=== PATIENT | male | born 1980 | race Caucasian/White ===

== ENCOUNTER 2019-03-05 10:09 | Day surgery (SDC) | payer OTHER ==
[2019-03-04 10:28] VITALS: BMI 31.5
[~2019-03-05 10:09] MED LIST: LACTATED RINGERS 1,000 ML IV SCH
[2019-03-05 10:21] VITALS: TEMP 96
[2019-03-05] MEDS ORDERED: PROPOFOL 10 MG/ML 20 ML VIAL IV ONE (10:46)
--- NOTE | 2019-03-05 10:59 | P.PCN ---
Date of Procedure: 03/05/19 Procedure(s) Performed: BRIEF HISTORY: Patient is a 38-year-old, pleasant, male, scheduled for an upper endoscopy as a part of evaluation of long-standing history of GERD of several years duration. He is been on omeprazole 20 mg daily for almost 20 years. Lately has been having excessive burping and occasional break through heartburn. He is hence scheduled for an upper endoscopy to rule out complicated reflux disease.. PROCEDURE PERFORMED: Esophagogastroduodenoscopy with biopsy. PREOPERATIVE DIAGNOSIS: Long standing history of GERD. IV sedation per anesthesia. PROCEDURE: After informed consent was obtained, the patient was brought into the endoscopy unit. IV sedation was administered by Anesthesia under continuous monitoring. Initially the Olympus GIF-140 video endoscope was inserted into the mouth. Esophagus intubated without any difficulty. It was gradually advanced into the stomach and duodenum and carefully examined. The bulb and the second part of the duodenum appeared normal. The scope at this time was withdrawn to the stomach, adequately insufflated with air, and upon careful examination, mucosa of the antrum, had mild antral gastritis. Biopsies were done from this area. The body, cardia and the fundus appeared normal. The scope was then withdrawn into the esophagus. The GE junction was located at 39 cm from the incisors. The esophagus appeared normal. There were no erosions or ulcerations seen and the patient tolerated the procedure well. IMPRESSION: 1. Mild antral gastritis. 2. No evidence of esophagitis or Banegas's esophagus. RECOMMENDATIONS: The findings of this examination were discussed with the patient as well as his family. He was advised to continue with Prilosec 20 mg daily but he can have our before dinnertime and follow antireflux measures.
[2019-03-05 11:13] VITALS: RESP 16
[2019-03-05 11:22] VITALS: BP 128/87; PULSE 81
== END 2019-03-05 11:41 | disposition home or self-care (01) ==
LOC: ORWHC2ENDO 10:09
PROVIDERS: ATTEND Internal Medicine Gastroenterology
DX: K29.50 Unspecified chronic gastritis without bleeding (principal); K21.9 Gastro-esophageal reflux disease without esophagitis; G43.909 Migraine, unspecified, not intractable, without status migrainosus; J44.9 Chronic obstructive pulmonary disease, unspecified; F39 Unspecified mood [affective] disorder; Z79.899 Other long term (current) drug therapy
CPT/HCPCS: 43239; J2704; 88305

== ENCOUNTER 2021-05-14 20:18 | Emergency (ER) | payer OTHER ==
[2021-05-14] MEDS ORDERED: KETOROLAC 15 MG/ML 1 ML VIAL IM STA (20:41)
--- NOTE | 2021-05-14 21:13 | XR ---
EXAMINATION TYPE: XR elbow complete RT DATE OF EXAM: 05/14/2021 COMPARISON: NONE HISTORY: Fall. Pain. TECHNIQUE: 3 views FINDINGS: There is 13 mm intra-articular large chip fracture of the lateral aspect of the radial head . There is separation 2 mm. There is no dislocation. Joint spaces are normal. IMPRESSION: Acute intra-articular fracture of the radial head.
--- NOTE | 2021-05-14 21:58 | ED ---
Fall HPI - General Chief Complaint: Fall Stated Complaint: R Elbow Injury Time Seen by Provider: 05/14/21 20:32 Source: patient, RN notes reviewed Mode of arrival: ambulatory - History of Present Illness Initial Comments: Patient is a 41-year-old male that presents to emergency department complaining of right elbow pain after falling while rollerblading. He notes he fell on ou tstretched hand. She denied any significant pain while sitting up in bed during exam and interview. He did note that he had some linear range of motion on full extension. He did note that he had full sensation and feeling in his right hand. She denied any other issues or complaints at this time. - Related Data Home Medications Medication Instructions Recorded Confirmed FLUoxetine HCL [PROzac] 80 mg PO DAILY 03/04/19 03/04/19 LORazepam [Ativan] 1 mg PO DAILY 03/04/19 03/04/19 Metoprolol Succinate (ER) [Toprol 50 mg PO HS 03/04/19 03/05/19 Xl] Montelukast [Singulair] 10 mg PO HS 03/04/19 03/04/19 Omeprazole [PriLOSEC] 20 mg PO AC-BRKFST 03/04/19 03/04/19 Phentermine HCl [Adipex-P] 37.5 mg PO HS 03/04/19 03/04/19 SUMAtriptan SUCCINATE [Imitrex] 100 mg PO DAILY PRN 03/04/19 03/05/19 Topiramate [Topamax] 100 mg PO BID 03/04/19 03/04/19 Allergies Allergy/AdvReac Type Severity Reaction Status Date / Time No Known Allergies Allergy Verified 05/14/21 20:27 Review of Systems ROS Statement: Those systems with pertinent positive or pertinent negative responses have been documented in the HPI. ROS Other: All systems not noted in ROS Statement are negative. Past Medical History Past Medical History: Asthma, GERD/Reflux, Hypertension, Neurologic Disorder Additional Past Medical History / Comment(s): MIGRAINES History of Any Multi-Drug Resistant Organisms: None Reported Past Surgical History: No Surgical Hx Reported Past Anesthesia/Blood Transfusion Reactions: No Reported Reaction Past Psychological History: Anxiety Smoking Status: Never smoker Past Alcohol Use History: Occasional Past Drug Use History: None Reported - Past Family History Mother Family Medical History: No Reported History General Exam Limitations: no limitations General appearance: alert, in no apparent distress Head exam: Present: atraumatic, normocephalic, normal inspection Eye exam: Present: normal appearance, PERRL, EOMI. Absent: scleral icterus, conjunctival injection, periorbital swelling Neck exam: Present: normal inspection Respiratory exam: Present: normal lung sounds bilaterally. Absent: respiratory distress, wheezes, rales, rhonchi, stridor Cardiovascular Exam: Present: regular rate, normal rhythm, normal heart sounds. Absent: systolic murmur, diastolic murmur, rubs, gallop, clicks Extremities exam: Present: normal inspection, full ROM, normal capillary refill. Absent: tenderness, pedal edema, joint swelling, calf tenderness Right Elbow exam: Present: normal inspection. Absent: full ROM (Extension limited secondary to pain.), tenderness, swelling, abrasion Neurological exam: Present: alert, oriented X3 Psychiatric exam: Present: normal affect, normal mood Skin exam: Present: warm, dry, intact, normal color. Absent: rash Course Vital Signs 05/14/21 20:27 Temperature 98.7 F Pulse Rate 16 L Respiratory 16 Rate Blood Pressure 136/79 O2 Sat by Pulse 100 Oximetry Procedures - Orthopedic Splinting/Casting Injury #1 Side: right Upper Extremity Injury Location: elbow Upper Extremity Immobilizer: posterior splint, Trever wrap, synthetic pre-padded splint Medical Decision Making - Medical Decision Making 41-year-old male complaining of right elbow pain after falling while rollerblading. X-ray the right elbow ordered. 15 mg of Toradol ordered for pain. X-ray shows a intra-articular fracture of the radial head. Patient was splinted with a posterior splint put in an arm sling. Case discussed with Dr. Dunn, patient can discharge home with follow-up to primary care and orthopedics. - Radiology Data Radiology results: report reviewed, image reviewed Elbow x-ray: Acute intra-articular fracture of the radial head. Disposition Clinical Impression: Right radial head fracture Disposition: HOME SELF-CARE Condition: Stable Instructions (If sedation given, give patient instructions): Fall Prevention (ED) Additional Instructions: Please return to the Emergency Department if symptoms worsen or any other concerns. Follow-up with primary care in the next 2 days. Follow-up with orthopedics in the next 1-2 days. Take Tylenol and Motrin as needed for pain control. Is patient prescribed a controlled substance at d/c from ED?: No Referrals: Willian Donahue MD [Primary Care Provider] - 1-2 days Alexandro Rahman DO [Doctor of Osteopathic Medicine] - 1-2 days Time of Disposition: 21:57
[2021-05-14 22:03] VITALS: BP 134/82; PULSE 78; RESP 20; TEMP 97.7
== END 2021-05-14 22:03 | disposition home or self-care (01) ==
LOC: EC 20:18
DX: S52.121A Displaced fracture of head of right radius, initial encounter for closed fracture (principal); I10 Essential (primary) hypertension; J45.909 Unspecified asthma, uncomplicated; K21.9 Gastro-esophageal reflux disease without esophagitis; F41.9 Anxiety disorder, unspecified; Z79.899 Other long term (current) drug therapy; V00.121A Fall from non-in-line roller-skates, initial encounter; Y93.51 Activity, roller skating (inline) and skateboarding
CPT/HCPCS: 73080; 29125; 96372; 99283; J1885

== ENCOUNTER → 2022-03-07 | Outpatient (CLI) | payer OTHER ==
--- NOTE | 2022-03-07 08:51 | MR ---
EXAMINATION TYPE: MR brain wo/w con DATE OF EXAM: 03/07/2022 COMPARISON: NONE HISTORY: Headaches TECHNIQUE: Multiplanar, multisequence images of the brain and brainstem is performed without and with IV contras t, utilizing 9 mL intravenous Gadavist . FINDINGS: Diffusion weighted images demonstrate no evidence of a recent infarct or other diffusion ab normality. There is no extra-axial fluid collection or significant white matter signal abnormality. The ventricular system and cisternal spaces are normal in size and appearance. The brain volume is age appropriate. Midline structures demonstrate normal morphology. The craniocervical junction appears within normal limits. Post contrast images demonstrate no abnormal enhancement. The dural venous sinuses appear pa tent. The visualized sinuses are clear and the globes are intact. IMPRESSION: Unremarkable study.
== END | disposition home or self-care (01) ==
LOC: RADMRIMAIN 07:24
PROVIDERS: ATTEND Pediatrics
DX: R51.9 Headache, unspecified (principal)
CPT/HCPCS: 70553; A9585

== ENCOUNTER → 2023-07-25 | Outpatient (CLI) | payer OTHER ==
--- NOTE | 2023-08-01 10:48 | MR ---
EXAMINATION TYPE: MR elbow LT wo con DATE OF EXAM: 07/25/2023 COMPARISON: NONE HISTORY: 43-year-old male M66.322 spontaneous rupture, Left elbow pain with limited mobility, TECHNIQUE: Multiplanar, multisequence images of the left elbow were obtained without IV contrast. FINDINGS: There is a small 4 mm tear along the superficial insertion of the common flexor tendon origin. Underl pradeep ACL is intact. The common extensor tendon origin and underlying RCL appears intact. The radiocapitellar and ulnar trochlear joints are intact. Physiologic joint fluid. Triceps insertion is intact. There is distal biceps tendon rupture. The retracted tendon. It is located at the level of the elbow joint line, retracted by possibly 4.2 cm. There is prominent hemorrhage and fluid along the interveni ng gap and also extending along the medial aspect of the upper forearm in the expected region of the lacertus fibrosis. Reactive edema tracks along the biceps myotendinous junction and lower muscle belly. No acute or healing fracture is seen. IMPRESSION: 1. Distal biceps tendon rupture. Associated hemorrhage and edema within the intervening gap. Balled u p stump retracted by 4.2 cm to the level of the elbow joint line. 2. There is also edema extending along the anteromedial upper forearm suggesting accompanying tear of the lacertus fibrosis. 3. Tiny tear along the superficial insertion of the common flexor tendon origin.
== END | disposition home or self-care (01) ==
LOC: RADMRIMAIN 20:45
PROVIDERS: ATTEND Orthopaedic Surgery Sports Medicine
DX: M66.322 Spontaneous rupture of flexor tendons, left upper arm (principal); M25.522 Pain in left elbow; R60.0 Localized edema

== ENCOUNTER 2023-08-14 19:05 | Emergency (ER) | payer OTHER ==
[2023-08-14 20:35] LABS: Basophils % (A) 0 %; Eosinophils # (A) 0.1 k/uL (0-0.7); Eosinophils % (A) 1 %; HCT 51.4 % (39.0-53.0); HGB 17.4 gm/dL (13.0-17.5); Lymphocytes # (A) 2.1 k/uL (1.0-4.8); Lymphocytes % (A) 23 %; MCH 29.5 pg (25.0-35.0); MCHC 33.8 g/dL (31.0-37.0); MCV 87.4 fL (80.0-100.0); Mean Platelet Volume 7.8; Monocytes # (A) 0.4 k/uL (0-1.0); Monocytes % (A) 4 %; Neutrophils # (A) 6.4 k/uL (1.3-7.7); Neutrophils % (A) 70 %; Platelet Count 236 k/uL (150-450); RBC 5.88 m/uL (4.30-5.90); RDW 12.5 % (11.5-15.5); WBC 9.2 k/uL (3.8-10.6)
[2023-08-14 20:51] LABS: Partial Thromboplastin Time 23.8 sec (22.0-30.0); Prothrombin Time 10.7 sec (10.0-12.5)
--- NOTE | 2023-08-14 21:10 | XR ---
EXAMINATION: XR chest 2V: 08/14/2023 8:35 PM CLINICAL INDICATION: dysrhythmia TECHNIQUE: Departmental protocol COMPARISON: None FINDINGS: The lungs are clear. The pleural spaces are negative. The cardiac silhouette is not enlarged. The remainder of the mediastinal silhouette is unremarkable. The skeletal structures and soft tissues are negative for acute findings. IMPRESSION: No acute radiographic process.
[2023-08-14 21:47] LABS: ALT 36 U/L (4-49); AST 32 U/L (17-59); African American GFR (CKD) >90 (>60 ml/min/1.73 sqM); Albumin 4.8 g/dL (3.5-5.0); Alkaline Phosphatase 48 U/L (38-126); Anion Gap 11 mmol/L; Blood Urea Nitrogen 8 mg/dL (9-20); Calcium 9.6 mg/dL (8.4-10.2); Carbon Dioxide 25 mmol/L (22-30); Chloride 104 mmol/L (98-107); Glucose 105 mg/dL (74-99); Magnesium 1.7 mg/dL (1.6-2.3); Non-African American GFR(CKD) >90 (>60 ml/min/1.73 sqM); Sodium 140 mmol/L (137-145); Total Bilirubin 0.8 mg/dL (0.2-1.3); Total Protein 7.5 g/dL (6.3-8.2)
--- NOTE | 2023-08-14 23:08 | ED ---
Arrhythmia/Palpitations HPI - General Chief Complaint: Arrhythmia/Palpitations Stated Complaint: palpitations Time Seen by Provider: 08/14/23 19:45 Source: patient Mode of arrival: ambulatory Limitations: no limitations - History of Present Illness Initial Comments: 43-year-old male presents emergency room reporting palpitations. States that for the past 3 weeks he will have intermittent palpitations that last for approximately one hour. Symptoms are currently present at this time. He has no associated chest pain or shortness of breath. No nausea or vomiting. He has no previous cardiac history. Denies that his symptoms are present with exertion. No significant family history of cardiac disease. He denies any calf pain or swelling. No fevers chills or cough. No other alleviating, precipitating or modifying factors - Related Data Home Medications Medication Instructions Recorded Confirmed FLUoxetine HCL [PROzac] 80 mg PO DAILY 03/04/19 08/14/23 Omeprazole [PriLOSEC] 20 mg PO AC-BRKFST 03/04/19 08/14/23 Topiramate [Topamax] 100 mg PO BID 03/04/19 08/14/23 LORazepam [Ativan] 0.5 mg PO DAILY PRN 07/04/23 08/14/23 Rosuvastatin Calcium 5 mg PO HS 07/04/23 08/14/23 Allergies Allergy/AdvReac Type Severity Reaction Status Date / Time No Known Allergies Allergy Verified 08/14/23 22:47 Review of Systems ROS Statement: Those systems with pertinent positive or pertinent negative responses have been documented in the HPI. ROS Other: All systems not noted in ROS Statement are negative. Past Medical History Past Medical History: Asthma, GERD/Reflux, Hypertension Additional Past Medical History / Comment(s): MIGRAINES History of Any Multi-Drug Resistant Organisms: None Reported Past Surgical History: No Surgical Hx Reported Past Anesthesia/Blood Transfusion Reactions: No Reported Reaction Past Psychological History: Anxiety Smoking Status: Never smoker Past Alcohol Use History: Occasional Past Drug Use History: None Reported - Past Family History Mother Family Medical History: No Reported History General Exam Limitations: no limitations Course Vital Signs 08/14/23 08/14/23 08/14/23 19:44 21:00 23:20 Temperature 97.8 F 98.5 F Pulse Rate 97 88 88 Respiratory 20 18 18 Rate Blood Pressure 163/96 134/89 134/89 O2 Sat by Pulse 99 98 97 Oximetry Medical Decision Making - Medical Decision Making Was pt. sent in by a medical professional or institution ([facility] Giles, NATIONAL SALES EXECUTIVE, urgent care, hospital, or detention...) When possible be specific @ -No Did you speak to anyone other than the patient for history (EMS, parent, family, police, friend...)? What history was obtained from this source @ -No Did you review nursing and triage notes (agree or disagree)? Why? @ -I reviewed and agree with nursing and triage notes Were old charts reviewed (outside hosp., previous admission, EMS record, old EKG, old radiological studies, urgent care reports/EKG's, detention records)? Report findings @ -No old charts were reviewed Differential Diagnosis (chest pain, altered mental status, abdominal pain women, abdominal pain men, vaginal bleeding, weakness, fever, dyspnea, syncope, headache, dizziness, GI bleed, back pain, seizure, CVA, palpatations, mental health, musculoskeletal)? @ -Differential Palpitations Ventricular arrhythmias, atrial arrhythmias, myocardial infarction, anemia, thyrotoxicosis, electrolyte imbalance, hypokalemia, pulmonary embolism, pulmonary disease, drugs, alcohol, anxiety, stress.... This is not meant to be an all-inclusive list. EKG interpreted by me (3pts min.). @ -yes and demonstrates sinus rhythm rate of 82. AR interval 163. QRS 98. QTC 385. No acute ST segment elevation or depression X-rays interpreted by me (1pt min.). @ -Yes and demonstrates no acute process CT interpreted by me (1pt min.). @ -None done U/S interpreted by me (1pt. min.). @ -None done What testing was considered but not performed or refused? (CT, X-rays, U/S, labs)? Why? @ -None What meds were considered but not given or refused? Why? @ -None Did you discuss the management of the patient with other professionals (professionals i.e. [employer] Giles, NATIONAL SALES EXECUTIVE, lab, RT, psych nurse, rn social services, spring coverer, teacher, finance officer, trimming caser)? Give summary @ -No Was smoking cessation discussed for >3mins.? @ -No Was critical care preformed (if so, how long)? @ -No Were there social determinants of health that impacted care today? How? (Homelessness, low income, unemployed, alcoholism, drug addiction, transportation, low edu. Level, literacy, decrease access to med. care, skilled nursing, rehab)? @ -No Was there de-escalation of care discussed even if they declined (Discuss DNR or withdrawal of care, Hospice)? DNR status @ -No What co-morbidities impacted this encounter? (DM, HTN, Smoking, COPD, CAD, Cancer, CVA, ARF, Chemo, Hep., AIDS, mental health diagnosis, sleep apnea, morbid obesity)? @ -None Was patient admitted / discharged? Hospital course, mention meds given and route, prescriptions, significant lab abnormalities, going to OR and other pert inent info. @ -Discharge. Upon arrival patient was placed into room 15. History and physical exam was performed. He is placed on continuous pulse ox and cardiac monitoring. 12-lead EKG is obtained. Laboratory studies are conducted. Patient does have visible PACs. I did discuss results with the patient. At this time to be discharged home. Instructed to follow up with his primary care doctor for echo and Holter monitoring. Return for any new or worsening symptoms. Patient was agreeable plan is discharged in stable condition Undiagnosed new problem with uncertain prognosis? @ -yes Drug Therapy requiring intensive monitoring for toxicity (Heparin, Nitro, Insulin, Cardizem)? @ -No Were any procedures done? @ -No Diagnosis/symptom? @ -Acute palpitations, PACs Acute, or Chronic, or Acute on Chronic? @ -acute Uncomplicated (without systemic symptoms) or Complicated (systemic symptoms)? @ -complicated Side effects of treatment? @ -No Exacerbation, Progression, or Severe Exacerbation? @ -No Poses a threat to life or bodily function? How? (Chest pain, USA, MA, pneumonia, PE, COPD, DKA, ARF, appy, cholecystitis, CVA, Diverticulitis, Homicidal, Suicidal, threat to staff... and all critical care pts) @ -No - Lab Data Result diagrams: 08/14/23 20:15 08/14/23 20:15 Lab Results 08/14/23 08/14/23 08/14/23 Range/Units 20:15 20:15 20:15 WBC 9.2 (3.8-10.6) k/uL RBC 5.88 (4.30-5.90) m/uL Hgb 17.4 (13.0-17.5) gm/dL Hct 51.4 (39.0-53.0) % MCV 87.4 (80.0-100.0) fL MCH 29.5 (25.0-35.0) pg MCHC 33.8 (31.0-37.0) g/dL RDW 12.5 (11.5-15.5) % Plt Count 236 (150-450) k/uL MPV 7.8 Neutrophils % 70 % Lymphocytes % 23 % Monocytes % 4 % Eosinophils % 1 % Basophils % 0 % Neutrophils # 6.4 (1.3-7.7) k/uL Lymphocytes # 2.1 (1.0-4.8) k/uL Monocytes # 0.4 (0-1.0) k/uL Eosinophils # 0.1 (0-0.7) k/uL Basophils # 0.0 (0-0.2) k/uL PT 10.7 (10.0-12.5) sec INR 1.0 (<1.2) APTT 23.8 (22.0-30.0) sec Sodium 140 (137-145) mmol/L Potassium 4.0 (3.5-5.1) mmol/L Chloride 104 (98-107) mmol/L Carbon Dioxide 25 (22-30) mmol/L Anion Gap 11 mmol/L BUN 8 L (9-20) mg/dL Creatinine 0.96 (0.66-1.25) mg/dL Est GFR (CKD-EPI)AfAm >90 (>60 ml/min/1.73 sqM) Est GFR (CKD-EPI)NonAf >90 (>60 ml/min/1.73 sqM) Glucose 105 H (74-99) mg/dL Calcium 9.6 (8.4-10.2) mg/dL Magnesium 1.7 (1.6-2.3) mg/dL Total Bilirubin 0.8 (0.2-1.3) mg/dL AST 32 (17-59) U/L ALT 36 (4-49) U/L Alkaline Phosphatase 48 (38-126) U/L Troponin I (0.000-0.034) ng/mL Total Protein 7.5 (6.3-8.2) g/dL Albumin 4.8 (3.5-5.0) g/dL TSH 1.570 (0.465-4.680) mIU/L 08/14/23 Range/Units 20:15 WBC (3.8-10.6) k/uL RBC (4.30-5.90) m/uL Hgb (13.0-17.5) gm/dL Hct (39.0-53.0) % MCV (80.0-100.0) fL MCH (25.0-35.0) pg MCHC (31.0-37.0) g/dL RDW (11.5-15.5) % Plt Count (150-450) k/uL MPV Neutrophils % % Lymphocytes % % Monocytes % % Eosinophils % % Basophils % % Neutrophils # (1.3-7.7) k/uL Lymphocytes # (1.0-4.8) k/uL Monocytes # (0-1.0) k/uL Eosinophils # (0-0.7) k/uL Basophils # (0-0.2) k/uL PT (10.0-12.5) sec INR (<1.2) APTT (22.0-30.0) sec Sodium (137-145) mmol/L Potassium (3.5-5.1) mmol/L Chloride (98-107) mmol/L Carbon Dioxide (22-30) mmol/L Anion Gap mmol/L BUN (9-20) mg/dL Creatinine (0.66-1.25) mg/dL Est GFR (CKD-EPI)AfAm (>60 ml/min/1.73 sqM) Est GFR (CKD-EPI)NonAf (>60 ml/min/1.73 sqM) Glucose (74-99) mg/dL Calcium (8.4-10.2) mg/dL Magnesium (1.6-2.3) mg/dL Total Bilirubin (0.2-1.3) mg/dL AST (17-59) U/L ALT (4-49) U/L Alkaline Phosphatase (38-126) U/L Troponin I <0.012 (0.000-0.034) ng/mL Total Protein (6.3-8.2) g/dL Albumin (3.5-5.0) g/dL TSH (0.465-4.680) mIU/L Disposition Clinical Impression: Palpitations, PAC (premature atrial contraction) Disposition: HOME SELF-CARE Condition: Stable Instructions (If sedation given, give patient instructions): Heart Palpitations (ED) Additional Instructions: You are having PACs (premature atrial contractions). I recommend that you follow-up with your doctor and have an echo and Holter monitoring performed. Return for any new or worsening symptoms Is patient prescribed a controlled substance at d/c from ED?: No Referrals: Willian Donahue MD [Primary Care Provider] - 1-2 days [facility] [Provider Group] - 1-2 days Time of Disposition: 23:08
[2023-08-14 23:27] VITALS: BP 134/89; PULSE 88; RESP 18; TEMP 98.5
== END 2023-08-14 23:25 | disposition home or self-care (01) ==
LOC: EC 19:05
DX: I49.1 Atrial premature depolarization (principal); R00.2 Palpitations; J45.909 Unspecified asthma, uncomplicated; I10 Essential (primary) hypertension; K21.9 Gastro-esophageal reflux disease without esophagitis; F41.9 Anxiety disorder, unspecified; Z79.899 Other long term (current) drug therapy
CPT/HCPCS: 36415; 71046; 80053; 83735; 84443; 84484; 85025; 85610; 85730; 93005; 99285